=== PATIENT | female | born 1990 | race Caucasian/White ===

== ENCOUNTER 2021-10-28 16:30 | Emergency (ER) | payer BC, SELFPAY ==
[2021-10-28 16:41] VITALS: BP 134/91; PULSE 94; RESP 16; TEMP 36.8; O2SAT 100
--- NOTE | 2021-10-28 17:19 | ED.FEMALEGU ---
HPI - Female Genitourinary General Chief complaint: Urogenital-Female Stated complaint: Urinary pain Time Seen by Provider: 10/28/21 17:20 Source: patient, RN notes reviewed and old records reviewed Mode of arrival: ambulatory Limitations: no limitations History of Present Illness HPI Narrative: 31 year old female who presents to [facility] care with complaints of vaginal itching and irritation since Sunday. Patient states white discharge which is not unusual for her denies any odor, states thin inconsistency. patient denies any vaginal bleeding or any sores to vaginal perineal region. Patient states that she has no burning or pain with urination or any frequency, denies any nausea or vomiting or any abdominal pain. Patient does state that she had unprotected sex with new partner about a week prior to discharge with itching noted. MD elicited complaint: vaginal discharge and genital itching Onset (ago): day(s) (2) Location of symptoms: external genitalia Female Urogenital Radiation: Non-Radiating Vaginal discharge: white Vaginal bleeding: none Exacerbating factors: none Related Data Allergies Allergy/AdvReac Type Severity Reaction Status Date / Time cephalexin Allergy Intermediate Hives Verified 10/28/21 17:29 Penicillins Allergy Mild Unknown Verified 10/28/21 17:29 AMOXICILLIN TRIHYDRATE Allergy Unknown Unknown Uncoded 10/28/21 17:29 Review of Systems Review of Systems: CONSTITUTIONAL: Denies fever, chills, or sweats. EYES: Denies visual changes, redness, or discharge. ENT: Denies rhinorrhea, congestion, sore throat, or otalgia. CARDIOVASCULAR: Denies chest pain, palpitations, or edema. RESPIRATORY: Denies cough or dyspnea. GASTROINTESTINAL: Denies abdominal pain, nausea, vomiting, or diarrhea. GENITOURINARY: Denies dysuria or hematuria.itchy irritating discharge which is white with no odor SKIN: Denies rash or itching. MUSCULOSKELETAL: Denies back pain, joint pain, or myalgia. NEUROLOGIC: Denies headache, numbness, or weakness. PSYCHIATRIC: Denies anxiety or depression. All systems reviewed & are unremarkable except as noted in HPI and below PMFSH Past Medical History Medical History (Updated 10/29/21 @ 13:17 by Gisela Alberto NP) No pertinent past medical history Surgical History Surgical History (Updated 10/28/21 @ 19:54 by Gisela Alberto NP) History of right knee surgery Family History Family History Grandparent Hypertension Cerebrovascular accident Family history of malignant neoplasm Social History Social History (Updated 10/28/21 @ 19:54 by Gisela Alberto NP) Smoking status: Never smoker Alcohol intake: current Substance use: never Living arrangements: with family Gender identity (if verbalized by the patient): Female Comments At time of signature, agree with nursing past medical, surgical, social and family history. There is no relevant family history pertinent to the presenting complaint Exam Narrative: GENERAL: Well-appearing, well-nourished, and in no acute distress. HEAD: Normocephalic, atraumatic. EYES: PERRLA and EOMI. ENT: Nares clear, no rhinorrhea or epistaxis. Mucous membranes moist. TMs normal throat pink with no lesions or exudates or tonsils NECK: Supple. No lymphadenopathy CHEST: Clear to auscultation. No respiratory distress. HEART: Regular rate and rhythm. No murmur heard. Normal peripheral pulses. ABDOMEN: Soft, nontender, nondistended, normal active bowel sounds. Itchy white vaginal discharge with no odor, no acute vaginal irritation or blood, no urinary burning pain or frequency denies CVA tenderness or suprapubic EXTREMITIES: Normal range of motion. No edema. SKIN: Warm, dry, no rash. NEURO: No focal deficits. Alert and oriented x3. Course Course Level of Care: Express Care Visit Vital Signs Vital signs: Vital Signs Temperature 36.8 C 10/28/21 16:41 Pulse Rate 94 10/28/21 16:41 Respir
== END 2021-10-28 17:48 | disposition home or self-care (01) ==
PROVIDERS: Emergency Provider Registered Nurse
DX: B37.3 Candidiasis of vulva and vagina (principal); N39.0 Urinary tract infection, site not specified
CPT/HCPCS: 81003; 87086; 87491; 87591; 87661; 99204; G0463

== ENCOUNTER 2021-11-29 11:17 | Emergency (ER) | payer BC, SELFPAY ==
[2021-11-29 11:18] VITALS: BP 150/105; PULSE 140; RESP 16; TEMP 37.1; O2SAT 99
--- NOTE | 2021-11-29 11:22 | ED.ALLEREA ---
HPI - Allergic Reaction General Chief complaint: Allergic Reaction Stated complaint: allergic reaction to antibiotics Time Seen by Provider: 11/29/21 11:22 Source: patient Mode of arrival: ambulatory Limitations: no limitations History of Present Illness HPI narrative: Patient is a 31 y/o F Related Data Allergies Allergy/AdvReac Type Severity Reaction Status Date / Time cephalexin Allergy Intermediate Hives Verified 10/28/21 17:29 Penicillins Allergy Mild Unknown Verified 10/28/21 17:29 AMOXICILLIN TRIHYDRATE Allergy Unknown Unknown Uncoded 10/28/21 17:29 PMF Past Medical History Medical History (Updated 10/29/21 @ 13:17 by Gisela Alberto NP) No pertinent past medical history Surgical History Surgical History (Updated 10/28/21 @ 19:54 by Gisela Alberto NP) History of right knee surgery Family History Family History Grandparent Hypertension Cerebrovascular accident Family history of malignant neoplasm Social History Social History (Updated 10/28/21 @ 19:54 by Gisela Alberto NP) Smoking status: Never smoker Alcohol intake: current Substance use: never Gender identity (if verbalized by the patient): Female Course Vital Signs Vital signs: Vital Signs Temperature 98.7 F 11/29/21 11:18 Pulse Rate 140 H 11/29/21 11:18 Respiratory Rate 16 11/29/21 11:18 Blood Pressure 150/105 H 11/29/21 11:18 Pulse Oximetry 99 11/29/21 11:18 Temperature 98.7 F 11/29/21 11:18 Pulse Rate 140 H 11/29/21 11:18 Respiratory Rate 16 11/29/21 11:18 Blood Pressure 150/105 H 11/29/21 11:18 Pulse Oximetry 99 11/29/21 11:18 Discharge Plan Discharge Prescriptions: No Action nitrofurantoin monohyd/m-cryst [Macrobid] 100 mg capsule 100 mg PO Q12H 7 Days Qty: 14 RF: 0 fluconazole [Diflucan] 150 mg tablet 150 mg PO DAILY Qty: 3 RF: 0
[2021-11-29] MEDS: EPINEPHrine HCL INJ 1 MG/ML AMPUL 0.3 MG IM (11:27)
--- NOTE | 2021-11-29 11:27 | ED.ALLEREA ---
HPI - Allergic Reaction General Chief complaint: Allergic Reaction Stated complaint: allergic reaction to antibiotics Time Seen by Provider: 11/29/21 11:22 Source: patient Mode of arrival: ambulatory Limitations: no limitations History of Present Illness HPI narrative: Patient is 31 years old white female came with itching rash all over the body started 30 minutes ago, started on Macrobid for urinary tract infection this morning. History of allergy to different antibiotics including penicillin family. Patient denies trouble swallowing or breathing. Related Data Allergies Allergy/AdvReac Type Severity Reaction Status Date / Time cephalexin Allergy Intermediate Hives Verified 11/29/21 11:25 Penicillins Allergy Mild Unknown Verified 11/29/21 11:25 nitrofurantoin Allergy Anaphylaxis Verified 11/29/21 11:25 AMOXICILLIN TRIHYDRATE Allergy Unknown Unknown Uncoded 11/29/21 11:25 Review of Systems Review of Systems: All systems reviewed & are unremarkable except as noted in HPI and below PMFSH Past Medical History Medical History No pertinent past medical history Surgical History Surgical History History of right knee surgery Family History Family History Grandparent Hypertension Cerebrovascular accident Family history of malignant neoplasm Social History Social History Smoking status: Never smoker Alcohol intake: current Substance use: never Gender identity (if verbalized by the patient): Female Exam Narrative: General appearance: Well-developed, well-nourished Skin: Red skin including the face and upper extremity with scattered hives Head: Normocephalic, nontraumatic Eyes: Clear conjunctiva ENT: Oropharynx normal, ears normal, nose normal Neck: Supple, nontender Chest and respiratory: Airway patent, no respiratory distress, no accessory muscle use Heart: Regular rate/rhythm Abdomen: Soft, nontender, no organomegaly, quiet bowel sounds Vascular: Normal peripheral pulses, normal capillary refill. Musculoskeletal: Normal range of motion, nontender back Neurologic: Alert and oriented ?3, [employer] is normal as tested, no gross motor deficit Course Course Emergency Course: Improving Vital Signs Vital signs: Vital Signs Temperature 37.1 C 11/29/21 11:18 Pulse Rate 140 H 11/29/21 11:18 Respiratory Rate 16 11/29/21 11:18 Blood Pressure 150/105 H 11/29/21 11:18 Pulse Oximetry 99 11/29/21 11:18 Temperature 37.1 C 11/29/21 11:18 Pulse Rate 110 H 11/29/21 11:54 Respiratory Rate 20 11/29/21 11:54 Blood Pressure 141/92 H 11/29/21 11:54 Pulse Oximetry 99 11/29/21 11:54 MDM - Allergic Reaction MDM Narrative Medical decision making narrative: Patient presents with allergic reaction, high likely to Macrobid. Symptoms resolve on epinephrine 0.3 mg IM, 25 mg IM, 50 mg of Benadryl IV, Solu-Medrol 125 mg IV and Pepcid 20 mg IV. Differential Diagnosis Differential diagnosis: Likely allergic reaction and adverse reaction to drug Lab Data Labs: Lab Results 11/29/21 Range/Units 12:15 Urine Color Yellow (Yellow) Urine Appearance Cloudy H (Clear) Urine pH 7.0 (5.0-9.0) Ur Specific [place] 1.019 (1.001-1.035) Urine Protein Negative (Negative) mg/dL Urine Glucose (UA) Negative (Negative) mg/dL Urine Ketones Negative (Negative) mg/dL Ur Blood (Man) Negative (Negative) Urine Nitrate Negative (Negative) Urine Bilirubin Negative (Negative) Urine Urobilinogen Negative
[2021-11-29] MEDS: diphenhydrAMINE HCl INJ 50 MG/ML VIAL IV PUSH (11:31)
[2021-11-29] MEDS: methylPREDNISolone SOD SUCC 125 MG VIAL IV PUSH (11:31)
[2021-11-29] MEDS: FAMOTIDINE 20 MG/2 ML VIAL IV PUSH (11:32)
[2021-11-29 11:54] VITALS: BP 141/92; PULSE 110; RESP 20; O2SAT 99
[2021-11-29] MEDS: ONDANSETRON INJ 4 MG/2 ML VIAL 8 MG IV PUSH (11:54)
[2021-11-29] MEDS: EPINEPHrine HCL INJ 1 MG/ML AMPUL 0.5 MG IM (12:18)
[2021-11-29 12:25] LABS: Add Urine Microscopic? YES; Appearance Urine Cloudy (Clear); Bacteria Urine Trace /hpf; Bilirubin Urine Negative (Negative); Blood Urine Negative (Negative); Color Urine Yellow (Yellow); Glucose Urine UA Negative (Negative); Ketones Urine Negative (Negative); Leukocyte Esterase Ur 2+ LEU/UL (Negative); Mucus Urine Rare /lpf; Nitrate Urine Negative (Negative); Protein Urine Negative (Negative); Specific Grav Ur 1.019 (1.001-1.035); Squamous Epithelial Cell Urine Many /hpf (Few); Urobilinogen Urine Negative mg/dL (<2.0)
[2021-11-29 12:42] VITALS: BP 145/85; PULSE 130; RESP 26; O2SAT 98
[2021-11-29 12:49] VITALS: PULSE 108
[2021-11-29] MEDS: LORazepam INJ (*CRX) 2 MG/ML VIAL 1 MG IV PUSH (12:57)
[2021-11-29 14:15] VITALS: BP 122/65; PULSE 118; RESP 21; O2SAT 98
== END 2021-11-29 14:13 | disposition home or self-care (01) ==
PROVIDERS: Emergency Provider Emergency Medicine
DX: T78.40XA Allergy, unspecified, initial encounter (principal); Z88.0 Allergy status to penicillin; Z88.1 Allergy status to other antibiotic agents
CPT/HCPCS: 81001; 87086; 96372; 96374; 96375; 99284; J0171; J1200; J2060; J2405; J2930

== ENCOUNTER → 2021-12-17 00:10 | Outpatient (CLI) | payer BC, SELFPAY ==
[2021-12-17 13:49] LABS: SARS-CoV-2 RNA PCR Negative
== END ==
PROVIDERS: PCP Emergency Medicine; Visit Provider Emergency Medicine
DX: Z20.822 Contact with and (suspected) exposure to COVID-19 (principal)
CPT/HCPCS: C9803; U0003; U0005

== ENCOUNTER 2021-12-19 14:49 | Outpatient (CLI) | payer BC, SELFPAY ==
--- NOTE | ~2021-12-19 | XR_ITS ---
EXAMINATION: XR chest 2V 12/19/2021 15:12 INDICATION: Bronchitis and cough PROCEDURE: 2 view chest COMPARISON: 05/25/2004 FINDINGS: The lungs are clear. The cardiomediastinal silhouette is within normal limits. There are no pleural effusions. There is no pneumothorax suspected. IMPRESSION: 1: NO ACUTE CARDIOPULMONARY DISEASE. Reviewed, dictated and finalized at location A.
== END 2021-12-19 14:50 | disposition home or self-care (01) ==
PROVIDERS: PCP Emergency Medicine; Visit Provider Emergency Medicine
DX: J40 Bronchitis, not specified as acute or chronic (principal); R05.9 Cough, unspecified
CPT/HCPCS: 71046

== ENCOUNTER 2022-09-12 14:16 | Outpatient (CLI) | payer BC, SELFPAY ==
--- NOTE | ~2022-09-12 | MM_ITS ---
EXAMINATION: MM screening noemi BI w sebastien HISTORY: Screening mammogram TECHNIQUE: Craniocaudal and mediolateral oblique 3-D tomosynthesis images were obtained and synthetic 2-D images were generated. CAD analysis was submitted and interpreted. COMPARISON: No prior mammogram is available for comparison at this institution. BREAST PARENCHYMAL COMPOSITION: The breasts are heterogeneously dense, which may obscure small masses . FINDINGS: There is no evidence of suspicious mass, calcification, or architectural distortion to sugg est malignancy in either breast. There has been no suspicious interval change. IMPRESSION: 1. No mammographic evidence of malignancy. 2. Recommend routine screening mammography in one year. BI-RADS Category 1: Negative Reviewed, dictated and finalized at location A. LS MANAGER
== END 2022-09-12 14:17 | disposition home or self-care (01) ==
LOC: ANHIMG 14:17
PROVIDERS: PCP Emergency Medicine; Visit Provider Emergency Medicine
DX: Z12.31 Encounter for screening mammogram for malignant neoplasm of breast (principal)
CPT/HCPCS: 77063; 77067

== ENCOUNTER 2023-05-14 13:15 | Outpatient (CLI) | payer BC, SELFPAY ==
--- NOTE | ~2023-05-14 | XR_ITS ---
EXAMINATION: XR lumbar spine 2-3V DATE: 05/14/2023 13:44 INDICATION: Left shoulder pain. TECHNIQUE: 3 views of lumbar spine were obtained. COMPARISON: None. FINDINGS: There is 3 degrees levocurvature of lumbar spine. Vertebral body heights and intervertebral disc heights are normal. The facet joints are unremarkable. There is an intrauterine device in expec manju position. IMPRESSION: 1. No etiology for the patient's symptoms. Reviewed, dictated and finalized at location A.
--- NOTE | ~2023-05-14 | XR_ITS ---
EXAMINATION: XR shoulder LT min 2V DATE: 05/14/2023 13:44 INDICATION: Left shoulder blade pain. TECHNIQUE: 4 views of left shoulder were obtained. COMPARISON: None. FINDINGS: Bone alignment is normal. No fracture. Joint spaces are normal. IMPRESSION: 1. Normal shoulder. Reviewed, dictated and finalized at location A. IMPRESSION: 1. Normal shoulder.
--- NOTE | ~2023-05-14 | XR_ITS ---
EXAMINATION: XR thoracic spine 3V DATE: 05/14/2023 13:44 INDICATION: Left shoulder blade pain. TECHNIQUE: 3 views of thoracic spine were obtained. COMPARISON: Thoracic spine radiographs 12/07/2014 FINDINGS: There is 4 degrees levocurvature of upper thoracic spine. There is mild chronic anterior we dging of T6 and T8 vertebral bodies. There is mildly decreased disc height at multiple levels in mid thoracic spine. There are endplate osteophytes at many levels. IMPRESSION: 1. Mild thoracic spondylosis. Reviewed, dictated and finalized at location A.
== END 2023-05-14 13:16 | disposition home or self-care (01) ==
LOC: ANHIMG 13:18
PROVIDERS: PCP Emergency Medicine; Visit Provider Emergency Medicine
DX: M25.512 Pain in left shoulder (principal); M43.04 Spondylolysis, thoracic region
CPT/HCPCS: 72072; 72100; 73030